=== PATIENT | male | born 1990 | race Caucasian/White ===

== ENCOUNTER 2018-12-14 06:07 | Day surgery (SDC) | payer OTHER ==
[2018-12-13 10:02] VITALS: BMI 25.1
[2018-12-14] MEDS ORDERED: ROPIVACAINE HCL 0.5% 30ML VIAL ONE (07:14)
[2018-12-14] MEDS ORDERED: MIDAZOLAM HCL 2 MG/2 ML SINGLE DOSE VIAL ONE ×2 (07:16)
[2018-12-14] MEDS ORDERED: PROPOFOL 20 ML ONE (07:49)
[2018-12-14] MEDS ORDERED: LIDOCAINE HCL/PF 2% SDV 5ML VIAL ONE (07:51)
[2018-12-14] MEDS ORDERED: SODIUM CHLORIDE 0.9% P/F 10 ML VIAL IJ ONE (07:56)
[2018-12-14] MEDS ORDERED: ceFAZolin SODIUM 1 GM VIAL ONE (07:56)
[2018-12-14] MEDS ORDERED: ONDANSETRON 4 MG/2 ML VIAL ONE (07:57)
[2018-12-14] MEDS ORDERED: DEXAMETHASONE SOD PHOSPHATE 4 MG/1 ML VIAL ONE (07:57)
[2018-12-14] MEDS ORDERED: ceFAZolin SODIUM 1 GM VIAL IVPB ONE (07:58)
[2018-12-14] MEDS ORDERED: oxyCODONE HCL 5 MG TABLET PO PRN (09:19)
[2018-12-14] MEDS ORDERED: ONDANSETRON 4 MG/2 ML VIAL IVPUSH PRN (09:19)
[2018-12-14] MEDS ORDERED: PROMETHAZINE HCL 25 MG/1 ML VIAL IVPUSH PRN (09:19)
--- NOTE | 2018-12-14 09:19 | HP ---
[facility] - Chief Complaint Chief Complaint: right knee pain/instability - Past Medical History Allergies/Adverse Reactions: Allergies Allergy/AdvReac Type Severity Reaction Status Date / Time No Known Allergies Allergy Verified 12/14/18 06:37 - Current Medications Current Medications: Home Medications Medication Instructions Recorded Ibuprofen [Motrin -] 600 mg PO PRN PRN 12/14/18 [facility] Physical Exam - Physical Examination Vital Signs: Vital Signs Period Temp Pulse Resp BP Sys/Oliveira Pulse Ox Last 24 Hr 98.4 F-98.4 F 78-78 20-20 133-133/69-69 100 General Appearance: Well Nourished, Well Developed, Alert & Oriented x3 ENT: Clear Lung: Normal air movement Heart: Regular rate & rhythm Extremities: Other (right knee- + swelling, + ttp, + justice, + ant draw, + pivot, nvi MRI + ACL rupture) Neurological: Intact, Alert, Oriented [facility]ellite Impression/Plan - Impression/Plan Impression: right knee acl rupture Operative Procedure: right knee arthroscopy with ACL reconstruction using BTB autograft Date to be Performed: 12/14/18
[2018-12-14] MEDS ORDERED: MEPERIDINE HCL 25 MG/ML VIAL IVPUSH ONE (09:20)
--- NOTE | 2018-12-14 09:21 | OP ---
Operative Note - Note: Operative Date: 12/14/18 ([facility]) Pre-Operative Diagnosis: right knee acl rupture Operation: right knee arthroscopy with ACL reoncstruction using BTB auotgraft Post-Operative Diagnosis: Same as Pre-op Surgeon: Cy Garcia Supervising Airplane Pilot: Jason Philip) Anesthesiologist/OUTSIDE LABORER: Bryson Diaz Anesthesia: General, Local Specimens Removed: shavings Estimated Blood Loss (mls): 0 (tourniquet) Operative Report Dictated: Yes
[2018-12-14] MEDS ORDERED: LACTATED RINGERS SOLUTION 1,000 ML IV SCH (09:30)
--- NOTE | 2018-12-14 10:50 | OP ---
DATE OF OPERATION: 12/14/2018 PREOPERATIVE DIAGNOSIS: Right anterior cruciate ligament tear. POSTOPERATIVE DIAGNOSIS: Right anterior cruciate ligament tear. PROCEDURE: Right anterior cruciate ligament reconstruction with bone patellar bone autograft harvesting. SURGEON: Cy Garcia MD RESEARCH ANTHROPOLOGIST: JACK Nance, and Robbie Zuniga MD ANESTHESIA: Regional and general. CLOSURE: Arthrex metallic interference screw fixation for graft, 2-0 Vicryl for paratenon, No. 1 Vicryl for tendon, 4-0 Vicryl subcutaneous, 3-0 Monocryl and skin glue for skin. ESTIMATED BLOOD LOSS: Negligible. TOURNIQUET TIME: Approximately 50 minutes. COMPLICATIONS: None. CONDITION: To recovery room in stable condition. DESCRIPTION OF PROCEDURE: The patient was taken to the operating room on December 14, 2018. General anesthesia with LMA as well as was as regional anesthesia was administered by the anesthesiologist. IV Kefzol was administered prophylactically prior to the case. A well-padded pneumatic tourniquet was placed on the right proximal thigh. The right lower extremity was prepped and draped in the usual sterile fashion. First the graft was harvested. A 6-cm longitudinal incision centered over the patellar tendon was incised. Hemostasis was achieved using Bovie cautery. Sharp dissection carried down to the level of the tendon. Flaps were made medially and laterally from mid-patella down to tibial tubercle. The central 10 mm of the patellar tendon were harvested using a 10 mm double blade. Then, 10 x 25 mm plugs were then harvested from the patella and tibial tubercle using the micro-oscillating saw. Two drill holes were placed through each plug with the passage of No 2 FiberWire traction sutures. The donor site was filled with Freya Putty at the end of the case, 0 Vicryl interrupted suture was used to close the tendon void. The graft was fastened to snugly fit through 10-mm sizers. It was measured for length and placed on the back table on an antibiotic-soaked sponge for later usage. Next, the arthroscopic portion of the procedure was performed. The superolateral portal was then made using a No. 15 blade followed by a blunt trocar. Then, 30 mL of blood-tinged fluid was removed from the knee joint. The medial and lateral infrapatellar portals were then made through the previously-made incisions for graft harvesting with a No. 15 blade followed by a blunt trocar. The scope was placed up into the suprapatellar pouch. The pouch was visualized to be clean. The medial and lateral gutters were visualized to be clean. The undersurface of the patella and trochlea were visualized to be intact. With valgus stress on the knee, the medial compartment was entered. The medial meniscus was visualized and probed, and found to be intact. The medial femoral condyle was run and found to be intact, as was the medial tibial plateau. In the figure-of-4 position, the lateral compartment was entered. The lateral meniscus was visualized and probed, and found to be intact. The lateral femoral condyle was run and found to be intact, as was the lateral tibial plateau. At 90 degrees, the ACL was visualized to be torn. Its stump was debrided using the shaver. A notchplasty was then performed using ArthroCare device as well as a round dara until sufficient width and height of the notch was obtained. This was done and the posterior aspect of the notch was clearly visualized and was sufficient width for the graft to fit. Using the FlipCutter, a 10-mm tunnel was drilled just anterior to the PCL exiting the anterior medial and proximal tibia. This was used by using the guide by first drilling the wire, flipping the FlipCutter, and then, retrograde cutting the tibia for a tunnel of approximately 45 mm in length. A carrot was placed in the tunnel. All bone fragments were removed from the knee using shaver. With the knee flexed at 125 degrees, a Beath pin guidewire was drilled from the posterior aspect of the notch until it exiting the anterolateral distal thigh. This was then reamed with a 10-mm flat reamer to the depth of 25 mm. All bone fragments were removed from the knee using the shaver. A shuttle through the eyelet hole of the Beath pin pulled out the anterolateral distal thigh and down the tibia. The traction sutures and graft were then placed through the shuttle suture, and the graft was pulled up into the knee joint. The femoral plug was found to be buried and flush with the femoral tunnel. Again with the knee flexed at 125 degrees, an 8 x 25 mm metallic Arthrex interference screw was screwed between the femoral tunnel and the femoral plug achieving excellent fixation. The knee was taken through a range of motion and found to have sufficient width of the notch throughout range of motion, so that the graft did not abrade against the notch nor get pinched in extension and was found to cross sufficiently well over the PCL. With 20 degrees of flexion and posterior drawer being applied, a 9 x 25 mm metallic Arthrex tibial fully-threaded interference screw was placed between the tibial bone plug and the tibial tunnel achieving excellent fixation. The knee was taken through a range of motion and found to go from full extension to full flexion, negative Bon, negative anterior drawer, and negative pivot. Direct visualization of the graft revealed excellent tension in the graft, excellent crossing of the PCL, and no impingement on the notch. The knee was thoroughly irrigated, the scope was removed. The paratenon was closed using 2-0 Vicryl running suture, subcutaneous was closed with 2-0 Vicryl, and 3-0 Monocryl subcuticular with skin glue for the skin. The outflow portal was then pulled and closed with 4-0 nylon suture. Sterile pressure dressing followed by a knee immobilizer was applied. At the beginning of the case the leg was exsanguinated with an Esmarch bandage and tourniquet was inflated to 275 mmHg. At the end of the case, tourniquet was deflated with a total tourniquet of time of approximately 50 minutes. No complications. Patient was awakened from anesthesia and transferred to recovery room in stable condition. Anjali [id number]
[2018-12-14] MEDS ORDERED: CEFAZOLIN 1 GM/D5W 1 GM/50 ML BAG ONE (10:55)
[2018-12-14] MEDS ORDERED: oxyCODONE HCL 5 MG TABLET ONE (10:55)
[2018-12-14 12:05] VITALS: BP 121/79; PULSE 69
[2018-12-14 12:59] VITALS: TEMP 97.4
[2018-12-14] MEDS ORDERED: CEFAZOLIN 1 GM in DEXTROSE 5%-WATER - 50 ML IVPB ONE (13:00)
== END 2018-12-14 12:00 | disposition home or self-care (01) ==
LOC: JASU-SURG 06:07
PROVIDERS: ATTEND Orthopaedic Surgery
PROC: 0MRN47Z Replacement of Right Knee Bursa and Ligament with Autologous Tissue Substitute, Percutaneous Endoscopic Approach (ICD-10-PCS; principal; 2018-12-14 07:30)
DX: S83.511A Sprain of anterior cruciate ligament of right knee, initial encounter (principal); X58.XXXA Exposure to other specified factors, initial encounter; Y93.9 Activity, unspecified; Y92.9 Unspecified place or not applicable; Y99.9 Unspecified external cause status
CPT/HCPCS: 29888; C1713; 94760